=== PATIENT | female | born 1980 | race Caucasian/White ===

== ENCOUNTER 2017-01-03 05:20 | Inpatient (IN) | payer BC ==
[~2017-01-03] VITALS: Ht 165.1 cm; Wt 93.9 kg
[2017-01-03] MEDS ORDERED: LR 1,000 ML IV SCH ×3 (05:50→08:50)
[2017-01-03] MEDS ORDERED: CEFAZOLIN 2 GM IVPB PREMIX 50 ML IV ONE (06:00)
[2017-01-03] MEDS ORDERED: MORPHINE SULFATE 10MG/10ML PF AMP EP ONE (07:00)
[2017-01-03] MEDS ORDERED: LR 1,000 ML IV.SOLN IV ONE (07:00)
[2017-01-03] MEDS ORDERED: NS IRRIG SOLN 1000 ML IR ONE (07:00)
[2017-01-03] MEDS ORDERED: ONDANSETRON HCL 4 MG/2 ML VIAL IVP ONE (07:00)
[2017-01-03] MEDS ORDERED: ePHEDrine sulfate 50 MG/ML VIAL IV ONE (07:00)
[2017-01-03 07:29] VITALS: BP_SYST 135
[2017-01-03] MEDS ORDERED: NALOXONE HCL 1 MG in NACL 0.9% 1,000 ML IV PRN ×4 (07:29)
[2017-01-03] MEDS ORDERED: NALOXONE HCL 0.4 MG/ML AMP (NARCAN) IVP PRN ×3 (07:30)
[2017-01-03] MEDS ORDERED: HYDROmorphone 1 MG INJ. 1 MG/ML AMPUL IVP PRN (07:30)
[2017-01-03] MEDS ORDERED: HYDROmorphone 2 MG/ML VIAL IVP PRN ×2 (07:30)
[2017-01-03] MEDS ORDERED: ONDANSETRON HCL 4 MG/2 ML VIAL IVP PRN (07:30)
[2017-01-03] MEDS ORDERED: DIPHENHYDRAMINE INJ 50 MG/ML VIAL IVP PRN (07:30)
[2017-01-03] MEDS ORDERED: DIPHENHYDRAMINE HCL 50 MG CAPSULE PO PRN (07:30)
[2017-01-03] MEDS ORDERED: MEPERIDINE HCL/PF 25 MG/ML DISP.SYRIN IVP PRN ×2 (07:30)
[2017-01-03] MEDS ORDERED: OXYTOCIN/NORMAL SALINE 1,000 ML IV ONE (08:50)
[2017-01-03] MEDS ORDERED: ANUSOL 1 EA SUPP.RECT (PREPARATION H) RC PRN (09:00)
[2017-01-03] MEDS ORDERED: ACETAMINOPHEN 325 MG TABLET PO PRN (09:00)
[2017-01-03] MEDS ORDERED: SIMETHICONE 80 MG TAB.CHEW PO PRN (09:00)
[2017-01-03] MEDS ORDERED: DOCUSATE SODIUM 100 MG CAPSULE PO PRN (09:00)
[2017-01-03] MEDS ORDERED: SENNOSIDES/DOCUSATE SODIUM 1 TAB TABLET(SENOKOT-S) PO PRN (09:00)
[2017-01-03] MEDS ORDERED: MEASLES,MUMPS&RUBELLA VACC/PF 12500 UNIT/0.5 ML VIAL SUBQ PRN (09:00)
[2017-01-03] MEDS ORDERED: BISACODYL 10 MG/SUPPOSITORY RC PRN (09:00)
[2017-01-03] MEDS ORDERED: LANOLIN 7 GM OINT. TP PRN (09:00)
[2017-01-03] MEDS ORDERED: OXYCODONE/ACETAMINOPHEN 5-325 TABLET PO PRN ×2 (09:00)
[2017-01-03] MEDS ORDERED: RHO(D) IMMUNE GLOBULIN/MALTOSE 1500 UNITS/1.3 ML (WINHRO) IM PRN (09:00)
[2017-01-03 09:18] VITALS: BP_SYST 124
[2017-01-03] MEDS ORDERED: TEMAZEPAM 15 MG CAPSULE PO PRN (21:00)
[2017-01-03] MEDS: IBUPROFEN 600 MG TABLET PO SCH (23:56)
[2017-01-04 06:17] LABS: BASOPHILS # (AUTO) 0.1 K/uL (0.0-0.2); BASOPHILS % (AUTO) 0.6 % (0.0-2.0); EOSINOPHILS % (AUTO) 0.2 % (0.0-4.0); HEMATOCRIT 28.8 % (36-48); HEMOGLOBIN 9.6 g/dL (12.0-16.0); LYMPHOCYTES # (AUTO) 1.9 K/uL (1.0-5.5); LYMPHOCYTES % (AUTO) 13.9 % (20.5-51.5); MEAN CORPUSCULAR HEMOGLOBIN 28 pg (27-31); MEAN CORPUSCULAR HGB CONC 33 % (32-36); MEAN CORPUSCULAR VOLUME 83 fL (79.0-98.0); MONOCYTES # (AUTO) 0.8 K/uL (0.0-1.0); MONOCYTES % (AUTO) 5.9 % (1.7-9.3); NEUTROPHILS # (AUTO) 10.6 K/uL (1.8-7.7); NEUTROPHILS % (AUTO) 79.4 % (40.0-70.0); PLATELET COUNT (AUTO) 203 K/uL (130-430); RED BLOOD CELL COUNT(AUTO) 3.46 MIL/uL (4.2-6.2); RED CELL DISTRIBUTION WIDTH 13.7 % (9.0-15.0); WHITE BLOOD COUNT (AUTO) 13.4 K/uL (4.8-10.8)
[2017-01-04] MEDS ORDERED: IBUPROFEN 600 MG TABLET ONE (06:23)
[2017-01-04] MEDS: IBUPROFEN 600 MG TABLET PO SCH ×3 (06:29→18:53)
[2017-01-05] MEDS: IBUPROFEN 600 MG TABLET PO SCH ×3 (01:08→14:43)
== END 2017-01-05 16:30 | disposition home or self-care (01) | DRG 766 ==
LOC: SPU 05:20
PROVIDERS: ADMIT Obstetrics & Gynecology; ATTEND Obstetrics & Gynecology
PROC: 3E0134Z Introduction of Serum, Toxoid and Vaccine into Subcutaneous Tissue, Percutaneous Approach (ICD-10-PCS; 2017-01-03)
PROC: 10D00Z1 Extraction of Products of Conception, Low, Open Approach (ICD-10-PCS; principal; 2017-01-03 07:30)
DX: O44.43 Low lying placenta NOS or without hemorrhage, third trimester (principal); Z37.0 Single live birth; Z3A.37 37 weeks gestation of pregnancy; Z88.0 Allergy status to penicillin; Z23 Encounter for immunization
CPT/HCPCS: 36415; 85025; 86886; 86900; 86901; 94760; J0690; J2274; J2310; J2405; J2590; J7030; J7120

== ENCOUNTER 2020-03-14 10:49 | Emergency (ER) | payer BC, OTHER ==
[~2020-03-14] VITALS: Ht 165.1 cm; Wt 79.4 kg
[2020-03-14 10:51] VITALS: BP_SYST 130
[2020-03-14 11:42] VITALS: BP_SYST 130
== END 2020-03-14 11:41 | disposition home or self-care (01) ==
LOC: SED 10:49
DX: O20.9 Hemorrhage in early pregnancy, unspecified (principal); Z3A.15 15 weeks gestation of pregnancy
CPT/HCPCS: 81002; 81025; 99282